=== PATIENT | male | born 1955 | race Caucasian/White ===

== ENCOUNTER 2020-04-18 13:42 | Observation (INO) ==
[2020-04-18 16:48] LABS: Basophils # 0.1 10*3/uL (0.0-0.2); Basophils % 0.5 % (0.0-0.8); Eosinophils # 0.2 10*3/uL (0.0-0.87); Eosinophils % 2.6 % (0.00-10.9); Hematocrit 41.3 VOL% (42.0-52.0); Hemoglobin 13.8 GM/DL (14.0-18.0); Immature Granulocytes % 0.4 %; Immature Granulocytes Absolute 0.04 #; Lymphocytes % 31.9 % (21.2-54.2); Mean Corpuscular HGB Conc 33.4 GM/DL (32-36); Mean Corpuscular Volume 88.2 FL (87-102); Mean Platelet Volume 10.1 FL (9.6-12.0); Monocytes % 7.8 % (1.7-12.7); Neutrophils % 56.8 % (38.7-73.9); Platelet Count 288 T/CUMM (130-400); Red Blood Count 4.68 MC/CUMM (3.8-5.5); Red Cell Distribution Width 14.4 % (9.3-17.3); White Blood Count 9.4 T/CUMM (4-12)
[2020-04-18 16:49] LABS: Albumin 3.7 G/DL (3.4-5.0); Bilirubin,Total 0.4 MG/DL (0.2-1.0); Calcium 9.2 MG/DL (8.5-10.1); Osmolality,Calculated 277.5 MOS/KG (273-304); Total Protein 7.4 G/DL (6.4-8.3)
[2020-04-18 16:54] LABS: PT Patient Result 10.5 SECS (9.8-11.9); Partial Thromboplastin Time 30.2 SECS (23.9-33.8)
[2020-04-18] MEDS ORDERED: DEXTROSE 50% 25 GM/50 ML VIAL IV PRN (18:54)
[2020-04-18] MEDS ORDERED: GLUCAGON 1 MG VIAL IM PRN (18:54)
[2020-04-18] MEDS ORDERED: ONDANSETRON 4 MG/2 ML VIAL IV PRN (18:54)
[2020-04-18] MEDS ORDERED: NITROGLYCERIN SL 0.4 MG TABLET SL PRN (19:00)
[2020-04-18] MEDS ORDERED: ENOXAPARIN 40 MG/0.4 ML SYRINGE SUBCUT SCH (21:00)
[2020-04-18] MEDS: NICOTINE 21 MG/24 HR PATCH TRANSDERM SCH (21:16)
[2020-04-18] MEDS: buPROPion SR 100 MG TABLET PO SCH (21:16)
[2020-04-18] MEDS: carvediloL 6.25 MG TABLET PO SCH (21:17)
[2020-04-19 06:33] LABS: Basophils # 0.1 10*3/uL (0.0-0.2); Basophils % 0.7 % (0.0-0.8); Eosinophils # 0.2 10*3/uL (0.0-0.87); Eosinophils % 2.7 % (0.00-10.9); Hematocrit 39.1 VOL% (42.0-52.0); Hemoglobin 12.8 GM/DL (14.0-18.0); Immature Granulocytes % 0.4 %; Immature Granulocytes Absolute 0.03 #; Lymphocytes # 2.3 10*3/uL (1.4-4.0); Mean Corpuscular HGB Conc 32.7 GM/DL (32-36); Mean Corpuscular Volume 88.7 FL (87-102); Mean Platelet Volume 9.7 FL (9.6-12.0); Monocytes % 9.7 % (1.7-12.7); Neutrophils % 57.5 % (38.7-73.9); Platelet Count 253 T/CUMM (130-400); Red Blood Count 4.41 MC/CUMM (3.8-5.5); Red Cell Distribution Width 14.2 % (9.3-17.3)
[2020-04-19 06:56] LABS: Osmolality,Calculated 276.5 MOS/KG (273-304)
[2020-04-19 07:00] LABS: Risk Ratio 7.41; VLDL CHOLESTEROL 64.4 MG/DL
[2020-04-19] MEDS: amLODIPine 10 MG TABLET PO SCH (08:46)
[2020-04-19] MEDS: NICOTINE 21 MG/24 HR PATCH TRANSDERM SCH (08:48)
[2020-04-19] MEDS: buPROPion SR 100 MG TABLET PO SCH ×2 (08:48→20:00)
[2020-04-19] MEDS ORDERED: ASPIRIN EC 325 MG TABLET PO SCH (09:00)
[2020-04-19] MEDS: carvediloL 6.25 MG TABLET PO SCH (09:09)
[2020-04-19] MEDS: LOSARTAN 25 MG TABLET PO SCH (09:22)
[2020-04-19] MEDS: MORPHINE 4 MG/1 ML VIAL IV PRN ×2 (09:52→19:51)
[2020-04-19] MEDS ORDERED: MAGNESIUM SULF RIDER 2 GM in PREMIX 1 EACH IV PRN (14:44)
[2020-04-19] MEDS ORDERED: POTASSIUM CHLORIDE RIDER 10 MEQ in PREMIX 1 EACH IV PRN (14:44)
[2020-04-19] MEDS ORDERED: ENOXAPARIN 80 MG/0.8 ML SYRINGE SUBCUT ONE (14:49)
[2020-04-19] MEDS: carvediloL 3.125 MG TABLET PO SCH (17:31)
[2020-04-19] MEDS: ROSUVASTATIN 20 MG TABLET PO SCH (21:46)
[2020-04-20] MEDS: MORPHINE 4 MG/1 ML VIAL IV PRN ×2 (04:35→16:08)
[2020-04-20 05:23] LABS: Basophils # 0.1 10*3/uL (0.0-0.2); Basophils % 0.6 % (0.0-0.8); Eosinophils # 0.2 10*3/uL (0.0-0.87); Eosinophils % 2.3 % (0.00-10.9); Hematocrit 39.3 VOL% (42.0-52.0); Hemoglobin 13.1 GM/DL (14.0-18.0); Immature Granulocytes % 0.3 %; Immature Granulocytes Absolute 0.03 #; Lymphocytes % 22.5 % (21.2-54.2); Mean Corpuscular HGB Conc 33.3 GM/DL (32-36); Mean Corpuscular Volume 87.9 FL (87-102); Mean Platelet Volume 10.2 FL (9.6-12.0); Monocytes % 10.5 % (1.7-12.7); Neutrophils % 63.8 % (38.7-73.9); Platelet Count 244 T/CUMM (130-400); Red Blood Count 4.47 MC/CUMM (3.8-5.5); Red Cell Distribution Width 13.9 % (9.3-17.3); White Blood Count 8.7 T/CUMM (4-12)
[2020-04-20 05:38] LABS: Osmolality,Calculated 270.1 MOS/KG (273-304)
[2020-04-20] MEDS ORDERED: diphenhydrAMINE CAP 25 MG CAPSULE PO ONE (06:00)
[2020-04-20] MEDS ORDERED: DIAZEPAM 5 MG TABLET PO ONE (06:00)
[2020-04-20] MEDS: carvediloL 3.125 MG TABLET PO SCH ×3 (06:51→17:25)
[2020-04-20] MEDS ORDERED: HEPARIN/NACL 0.9% 2 UNITS/ML 1,000 ML IV ONE (06:52)
[2020-04-20] MEDS ORDERED: LIDOCAINE 1% 20 ML VIAL ONE (06:52)
[2020-04-20] MEDS ORDERED: NITROGLYCERIN DRIP 50 MG/250 ML BOTTLE IV ONE (07:06)
[2020-04-20] MEDS ORDERED: VERAPAMIL 5 MG/2 ML VIAL ONE (07:07)
[2020-04-20] MEDS ORDERED: HYDROmorphone 2 MG/1 ML VIAL ONE ×2 (07:08→08:08)
[2020-04-20] MEDS ORDERED: MIDAZOLAM 2 MG/2 ML VIAL ONE ×2 (07:08→08:08)
[2020-04-20] MEDS ORDERED: diphenhydrAMINE 50 MG/1 ML VIAL ONE ×2 (07:13→08:19)
[2020-04-20] MEDS ORDERED: ENOXAPARIN 30 MG/0.3 ML SYRINGE ONE (07:18)
[2020-04-20] MEDS ORDERED: TIROFIBAN 5,000 MCG/100 ML PREMIX IV ONE (07:28)
[2020-04-20] MEDS ORDERED: HEPARIN/NACL 0.9% 2 UNITS/ML 500 ML IV ONE (08:22)
[2020-04-20] MEDS ORDERED: TICAGRELOR 90 MG TABLET ONE ×2 (08:36→08:44)
[2020-04-20] MEDS ORDERED: ASPIRIN 325 MG TABLET ONE ×2 (08:36→08:44)
[2020-04-20] MEDS ORDERED: ZALEPLON 5 MG CAPSULE PO PRN (08:47)
[2020-04-20] MEDS: TICAGRELOR 90 MG TABLET PO SCH ×2 (09:26→20:51)
[2020-04-20] MEDS: amLODIPine 10 MG TABLET PO SCH (09:26)
[2020-04-20] MEDS: LOSARTAN 25 MG TABLET PO SCH (09:26)
[2020-04-20] MEDS: NICOTINE 21 MG/24 HR PATCH TRANSDERM SCH (09:26)
[2020-04-20] MEDS: ASPIRIN EC 81 MG TABLET PO SCH (09:27)
[2020-04-20] MEDS: buPROPion SR 100 MG TABLET PO SCH ×2 (09:33→20:51)
[2020-04-20] MEDS: SODIUM CHLORIDE 0.45% 1,000 ML IV SCH ×2 (11:02→14:30)
[2020-04-20] MEDS ORDERED: POTASSIUM CHLORIDE 20 MEQ TABLET PO ONE (11:50)
[2020-04-20] MEDS: ROSUVASTATIN 20 MG TABLET PO SCH (20:51)
[2020-04-21] MEDS: MORPHINE 4 MG/1 ML VIAL IV PRN (03:18)
[2020-04-21] MEDS: SODIUM CHLORIDE 0.45% 1,000 ML IV SCH (03:49)
[2020-04-21 05:55] LABS: Basophils % 0.3 % (0.0-0.8); Eosinophils # 0.1 10*3/uL (0.0-0.87); Eosinophils % 1.2 % (0.00-10.9); Hemoglobin 12.3 GM/DL (14.0-18.0); Immature Granulocytes % 0.4 %; Immature Granulocytes Absolute 0.04 #; Lymphocytes # 1.7 10*3/uL (1.4-4.0); Lymphocytes % 15.8 % (21.2-54.2); Mean Corpuscular HGB Conc 33.2 GM/DL (32-36); Mean Corpuscular Volume 86.7 FL (87-102); Mean Platelet Volume 9.9 FL (9.6-12.0); Monocytes % 9.2 % (1.7-12.7); Neutrophils % 73.1 % (38.7-73.9); Platelet Count 235 T/CUMM (130-400); Red Blood Count 4.27 MC/CUMM (3.8-5.5); Red Cell Distribution Width 13.8 % (9.3-17.3); White Blood Count 10.8 T/CUMM (4-12)
[2020-04-21 06:11] LABS: Calcium 9.1 MG/DL (8.5-10.1); Osmolality,Calculated 274.8 MOS/KG (273-304)
[2020-04-21] MEDS ORDERED: POTASSIUM CHLORIDE 20 MEQ TABLET PO ONE (07:14)
[2020-04-21] MEDS: TICAGRELOR 90 MG TABLET PO SCH (08:28)
[2020-04-21] MEDS: ASPIRIN EC 81 MG TABLET PO SCH (08:28)
[2020-04-21] MEDS: LOSARTAN 25 MG TABLET PO SCH (08:29)
[2020-04-21] MEDS: carvediloL 3.125 MG TABLET PO SCH (08:29)
[2020-04-21] MEDS: buPROPion SR 100 MG TABLET PO SCH (08:29)
[2020-04-21] MEDS: amLODIPine 10 MG TABLET PO SCH (08:29)
[2020-04-21] MEDS: NICOTINE 21 MG/24 HR PATCH TRANSDERM SCH (08:30)
[2020-04-21 08:44] VITALS: BP 153/77
== END 2020-04-21 09:41 | disposition home or self-care (01) ==
LOC: N.ED 13:42 → N.EDINP 13:42 → N.TELEN 20:00
PROVIDERS: ADMIT Hospitalist; ATTEND Hospitalist
PROC: CLCCHCL (ICD-10-PCS; 2020-04-20 07:15)